=== PATIENT | male | born 1965 | race African-American/Black ===

== ENCOUNTER 2019-05-13 14:03 | Emergency (ER) | payer OTHER ==
[2019-05-13] MEDS ORDERED: Cephalexin 500 MG CAP ONE (14:45)
--- NOTE | 2019-05-13 19:48 | RAD ---
RIGHT FIFTH FINGER 05/13/19 An open wound is seen near the tip of the finger adjacent to the nail. There is a fracture of the ter meli tuft of the distal phalanx anteromedially. The proximal phalanx and middle phalanx appear intac t. The joints appear intact. IMPRESSION: Open fracture of the terminal tuft of the distal phalanx. POS: HOME
== END 2019-05-13 15:04 | disposition home or self-care (01) ==
LOC: BURERS 14:03
DX: S67.196A Crushing injury of right little finger, initial encounter (principal); F17.210 Nicotine dependence, cigarettes, uncomplicated; W23.0XXA Caught, crushed, jammed, or pinched between moving objects, initial encounter

== ENCOUNTER 2020-02-27 13:30 | Emergency (ER) | payer SELFPAY | END 2020-02-27 13:52 | disposition left against medical advice (07) | LOC: BURERS 13:30 | DX: Z53.21 Procedure and treatment not carried out due to patient leaving prior to being seen by health care provider (principal) ==